=== PATIENT | female | born 1980 | race Caucasian/White ===

== ENCOUNTER 2017-06-01 05:33 | Emergency (ER) | payer MEDICARE ==
[~2017-06-01] VITALS: Ht 182.9 cm; Wt 94.2 kg
[2017-06-01] MEDS ORDERED: ONDANSETRON 2MG/ML, 2ML ONE (06:21)
[2017-06-01] MEDS ORDERED: MORPHINE SULFATE 4 MG/ML, 1ML ONE (06:21)
[2017-06-01] MEDS ORDERED: ASPIRIN 81 MG TABLET CHEW ONE (06:21)
[2017-06-01 06:22] LABS: HEMATOCRIT 43.3 % (34.6-47.8); HEMOGLOBIN 14.5 g/dL (11.7-16.4); WHITE BLOOD COUNT 7.8 x10^3/uL (3.4-10)
[2017-06-01] MEDS ORDERED: SODIUM CHLORIDE FLUSH 10ML SYR IVF ONE (06:30)
[2017-06-01] MEDS ORDERED: MORPHINE SULFATE 4 MG/ML, 1ML IVPush PRN (06:30)
[2017-06-01] MEDS ORDERED: ASPIRIN 81 MG TABLET CHEW PO ONE (06:30)
[2017-06-01] MEDS ORDERED: ONDANSETRON 2MG/ML, 2ML IVPush ONE (06:30)
[2017-06-01 06:34] LABS: BLOOD UREA NITROGEN 8 mg/dL (7-18)
[2017-06-01 06:46] LABS: IS PT STATUS REG ER OR PRE ER? YES
[2017-06-01] MEDS ORDERED: OMNIPAQUE 350 MG/ML, 100ML BOTTLE ONE (07:30)
[2017-06-01] MEDS ORDERED: KETOROLAC 30 MG/1 ML IVPush ONE (08:30)
[2017-06-01] MEDS ORDERED: METOCLOPRAMIDE 5 MG/ML, 2ML IVPush ONE (08:30)
[2017-06-01] MEDS ORDERED: DIPHENHYDRAMINE 50 MG/ML, 1ML IVPush ONE (08:30)
[2017-06-01] MEDS ORDERED: METOCLOPRAMIDE 5 MG/ML, 2ML ONE (08:39)
[2017-06-01] MEDS ORDERED: KETOROLAC 30 MG/1 ML ONE (08:39)
[2017-06-01] MEDS ORDERED: DIPHENHYDRAMINE 50 MG/ML, 1ML ONE (08:39)
[2017-06-01 09:18] VITALS: BP 125/78
== END 2017-06-01 09:20 | disposition home or self-care (01) ==
LOC: ED 06:28
DX: R07.89 Other chest pain (principal); G43.909 Migraine, unspecified, not intractable, without status migrainosus; N30.90 Cystitis, unspecified without hematuria; Z88.8 Allergy status to other drugs, medicaments and biological substances
CPT/HCPCS: 36415; 71010; 71275; 80048; 81001; 82040; 83880; 84484; 85025; 85379; 87086; 93005; 96374; 96375; 99285; J1200; J1885; J2405; J2765; Q9967

== ENCOUNTER 2018-08-03 10:10 | Emergency (ER) | payer MEDICARE, OTHER ==
[~2018-08-03] VITALS: Ht 182.9 cm; Wt 92.0 kg
[2018-08-03 11:41] LABS: BASOPHILS # (AUTO) 0.03 x10^3/uL (0-0.1); BASOPHILS % (AUTO) 0 % (0-1); EOSINOPHILS # (AUTO) 0.46 x10^3/uL (0-0.4); EOSINOPHILS % (AUTO) 4 % (1-7); LYMPHOCYTES # (AUTO) 3.06 x10^3/uL (1-3.4); LYMPHOCYTES % (AUTO) 27 % (22-44); MD NO; MEAN CORPUSCULAR HGB CONC 33.9 g/dL (32.4-35.8); MEAN CORPUSCULAR VOLUME 88.6 fL (80-100); MEAN PLATELET VOLUME 8.1 fL (7.4-10.4); MONOCYTES # (AUTO) 0.74 x10^3/uL (0.2-0.8); MONOCYTES % (AUTO) 7 % (2-9); NEUTROPHILS # (AUTO) 6.97 x10^3/uL (1.8-6.8); NEUTROPHILS % (AUTO) 62 % (42-75); PLATELET COUNT 368 x10^3/uL (130-400); RED BLOOD COUNT 4.66 x10^6/uL (3.82-5.3); RED CELL DISTRIBUTION WIDTH 13.5 % (9.6-15.2)
[2018-08-03 11:47] LABS: MICROSCOPIC INDICATED
[2018-08-03 11:50] LABS: ALBUMIN 3.2 g/dL (3.4-5.0); ANION GAP 10 mmol/L (5-15); CALCIUM 8.6 mg/dL (8.5-10.1); CHLORIDE 102 mmol/L (98-107); CREATININE 1.22 mg/dL (0.55-1.02)
[2018-08-03 11:57] LABS: CULTURE INDICATED? NO
[2018-08-03] MEDS ORDERED: INSULIN REGULAR 100 UNITS/ML, 3ML VIAL SQ-INSULIN ONE (12:30)
[2018-08-03 12:53] VITALS: BP 97/53
== END 2018-08-03 13:07 | disposition home or self-care (01) ==
LOC: ED 12:55
DX: R33.9 Retention of urine, unspecified (principal); Z88.8 Allergy status to other drugs, medicaments and biological substances; Z88.5 Allergy status to narcotic agent
CPT/HCPCS: 36415; 51702; 80048; 81001; 82040; 85025; 93005; 99285

== ENCOUNTER 2018-11-24 19:23 | Emergency (ER) | payer MEDICARE ==
[~2018-11-24] VITALS: Ht 182.9 cm; Wt 90.1 kg
[2018-11-24 20:25] LABS: BASOPHILS # (AUTO) 0.07 x10^3/uL (0-0.1); BASOPHILS % (AUTO) 1 % (0-1); EOSINOPHILS # (AUTO) 0.39 x10^3/uL (0-0.4); EOSINOPHILS % (AUTO) 3 % (1-7); LYMPHOCYTES # (AUTO) 3.43 x10^3/uL (1-3.4); LYMPHOCYTES % (AUTO) 27 % (22-44); MD NO; MEAN CORPUSCULAR HEMOGLOBIN 30.3 pg (27.0-34.8); MEAN CORPUSCULAR HGB CONC 33.6 g/dL (32.4-35.8); MEAN CORPUSCULAR VOLUME 90.1 fL (80-100); MEAN PLATELET VOLUME 8.6 fL (7.4-10.4); MONOCYTES % (AUTO) 4 % (2-9); NEUTROPHILS % (AUTO) 66 % (42-75); PLATELET COUNT 392 x10^3/uL (130-400); RED BLOOD COUNT 4.97 x10^6/uL (3.82-5.3); RED CELL DISTRIBUTION WIDTH 14.9 % (9.6-15.2)
[2018-11-24 20:35] LABS: ALBUMIN 3.7 g/dL (3.4-5.0); ANION GAP 8 mmol/L (5-15); CALCIUM 9.6 mg/dL (8.5-10.1); CHLORIDE 108 mmol/L (98-107); CREATININE 0.92 mg/dL (0.55-1.02)
--- NOTE | 2018-11-24 20:40 | NUR ---
PT TO ROOM FROM LOBBY AT THIS TIME.
--- NOTE | 2018-11-24 20:47 | NUR ---
PT. TO ED WITH C/O COLD/COUGH/CONGESTION/CHEST TIGHTNESS X 1 MONTH ALONG WITH GENERALIZED BODY ACHES AND JOINT PAINS. PT. REPORTS WENT TO URGENT CARE AND "HAD A SEZIURE THERE SO THEY SENT ME HERE." PT. HAS HX OF SAME. NADN. PT. DENIES CP AT THIS TIME. STATES "IT'S JUST TIGHT WHEN I COUGH". CONTINUOUS PULSE OX AND B/P MONITORS PLACED. PIT ORDERS NEARLY COMPLETED; JUST AWAITING CHEST X-RAY READ. AWATING PROVIDER EVAL IN ROOM. FAMILY AT FOR SUPPORT. CALL LIGHT IN REACH. ALL SAFETY MEASUERS OBSERVED.
--- NOTE | 2018-11-24 21:31 | NUR ---
ARCHIE WAYNE IN TO EVAL PT. AND DISCUSS POC.
--- NOTE | 2018-11-24 21:39 | NUR ---
ARCHIE WAYNE OUT OF ROOM; AWAITING ORDERS.
[2018-11-24] MEDS ORDERED: IBUPROFEN 800 MG TABLET PO STA (22:01)
[2018-11-24] MEDS ORDERED: DEXAMETHASONE 4 MG TABLET PO STA (22:01)
[2018-11-24] MEDS ORDERED: IBUPROFEN 800 MG TABLET ONE (22:07)
[2018-11-24] MEDS ORDERED: DEXAMETHASONE 4 MG TABLET ONE (22:07)
[2018-11-24 22:09] VITALS: BP 103/56
--- NOTE | 2018-11-24 22:14 | NUR ---
PT. MEDICATED PER MAR. AWAITING D/C PAPERS.
== END 2018-11-24 22:27 | disposition home or self-care (01) ==
LOC: ED 22:21
DX: J20.8 Acute bronchitis due to other specified organisms (principal); J02.8 Acute pharyngitis due to other specified organisms; F17.210 Nicotine dependence, cigarettes, uncomplicated
CPT/HCPCS: 36415; 71046; 80048; 82040; 85025; 93005; 99284

== ENCOUNTER 2019-02-19 13:52 | Emergency (ER) | payer MEDICARE ==
[~2019-02-19] VITALS: Ht 182.9 cm; Wt 86.0 kg
--- NOTE | 2019-02-19 14:46 | NUR ---
PT STATES SHE HAS BEEN FEELING FUZZY MINDED FOR 3 DAYS. PER PT HAND TREMORS WORSE THAN NORMAL SINCE YESTERDAY. PT STATES SHE DID NOT TAKE PRN PAIN MEDS AND MUSCLE RELAXERS SINCE STARTING TO FEEL FUZZY MINDED. MOTHER AT BEDSIDE. AWAITING MD SMITH
--- NOTE | 2019-02-19 15:26 | NUR ---
BREAK RN: PT TO X RAY VIA EDGAR
[2019-02-19 15:34] LABS: BASOPHILS # (AUTO) 0.03 x10^3/uL (0-0.1); BASOPHILS % (AUTO) 0 % (0-1); EOSINOPHILS # (AUTO) 0.11 x10^3/uL (0-0.4); EOSINOPHILS % (AUTO) 1 % (1-7); LYMPHOCYTES # (AUTO) 2.22 x10^3/uL (1-3.4); LYMPHOCYTES % (AUTO) 21 % (22-44); MD NO; MEAN CORPUSCULAR HEMOGLOBIN 30.6 pg (27.0-34.8); MEAN CORPUSCULAR HGB CONC 33.6 g/dL (32.4-35.8); MEAN CORPUSCULAR VOLUME 91.1 fL (80-100); MEAN PLATELET VOLUME 8.4 fL (7.4-10.4); MONOCYTES # (AUTO) 0.57 x10^3/uL (0.2-0.8); MONOCYTES % (AUTO) 5 % (2-9); NEUTROPHILS # (AUTO) 7.83 x10^3/uL (1.8-6.8); NEUTROPHILS % (AUTO) 73 % (42-75); PLATELET COUNT 363 x10^3/uL (130-400); RED BLOOD COUNT 4.86 x10^6/uL (3.82-5.3); RED CELL DISTRIBUTION WIDTH 13.9 % (9.6-15.2)
--- NOTE | 2019-02-19 15:39 | NUR ---
BREAK RN: MEDICATED PER ORDERED, GAIT SLOW AND STEADY, OBTAINED URINE, SENT TO LAB
[2019-02-19 15:47] LABS: ALBUMIN 4.1 g/dL (3.4-5.0); ANION GAP 10 mmol/L (5-15); CALCIUM 9.4 mg/dL (8.5-10.1); CHLORIDE 106 mmol/L (98-107)
[2019-02-19 15:51] LABS: ALANINE AMINOTRANSFERASE 20 U/L (12-78); ALKALINE PHOSPHATASE 80 U/L (45-117); BILIRUBIN,TOTAL 0.7 mg/dL (0.2-1.0); CREATININE 0.74 mg/dL (0.55-1.02); TOTAL PROTEIN 8.2 g/dL (6.4-8.2)
[2019-02-19 16:06] LABS: AMPHETAMINE SCREEN, URINE Negative (Negative); BARBITURATE SCREEN, URINE Negative (Negative); BENZODIAZEPINE SCREEN, URINE Negative (Negative); CANNABINOID SCREEN, URINE Negative (Negative); COCAINE SCREEN, URINE Negative (Negative); METHADONE SCREEN, URINE Negative (Negative); OPIATE SCREEN, URINE Negative (Negative)
[2019-02-19 16:44] VITALS: BP 148/101
== END 2019-02-19 16:46 | disposition home or self-care (01) ==
LOC: ED 14:47
DX: R06.00 Dyspnea, unspecified (principal); I10 Essential (primary) hypertension; R20.2 Paresthesia of skin; R11.0 Nausea
CPT/HCPCS: 36415; 70450; 80053; 80307; 85025; 93005; 99284; Q0177

== ENCOUNTER 2019-02-25 18:47 | Emergency (ER) | payer MEDICARE ==
[~2019-02-25] VITALS: Ht 182.9 cm; Wt 92.4 kg
--- NOTE | 2019-02-25 18:56 | NUR ---
HERE WITH MOTHER AND FATHER, SYMPTOMS TIMES ONE WEEK OF FACIAL NUMBNESS AND CHEST PAIN, STATES THAT ONE HOUR AGO SHE DEVELOPED WHOLE L SIDE NUMBNESS, FACE SYMMETRICAL, MORA, WEAKNESS THROUGHOUT. AMBULATORY WITH STEADY GAIT HOWEVER MOVING QUIET SLOWLY.
[2019-02-25] MEDS ORDERED: SODIUM CHLORIDE FLUSH 10ML SYR IVF ONE (19:30)
[2019-02-25 19:38] LABS: BASOPHILS # (AUTO) 0.06 x10^3/uL (0-0.1); BASOPHILS % (AUTO) 1 % (0-1); EOSINOPHILS # (AUTO) 0.35 x10^3/uL (0-0.4); EOSINOPHILS % (AUTO) 4 % (1-7); LYMPHOCYTES # (AUTO) 4.16 x10^3/uL (1-3.4); LYMPHOCYTES % (AUTO) 41 % (22-44); MD NO; MEAN CORPUSCULAR HEMOGLOBIN 31.2 pg (27.0-34.8); MEAN CORPUSCULAR HGB CONC 34.2 g/dL (32.4-35.8); MEAN PLATELET VOLUME 8.3 fL (7.4-10.4); MONOCYTES # (AUTO) 0.43 x10^3/uL (0.2-0.8); MONOCYTES % (AUTO) 4 % (2-9); NEUTROPHILS # (AUTO) 5.07 x10^3/uL (1.8-6.8); NEUTROPHILS % (AUTO) 50 % (42-75); PLATELET COUNT 362 x10^3/uL (130-400); RED BLOOD COUNT 4.48 x10^6/uL (3.82-5.3)
[2019-02-25 19:42] LABS: ALANINE AMINOTRANSFERASE 18 U/L (12-78); ALBUMIN 3.6 g/dL (3.4-5.0); ANION GAP 5 mmol/L (5-15); CALCIUM 8.6 mg/dL (8.5-10.1); CHLORIDE 113 mmol/L (98-107); CREATININE 0.84 mg/dL (0.55-1.02)
[2019-02-25 19:44] LABS: ALKALINE PHOSPHATASE 78 U/L (45-117); BILIRUBIN,TOTAL 0.1 mg/dL (0.2-1.0); TOTAL PROTEIN 7.5 g/dL (6.4-8.2)
--- NOTE | 2019-02-25 21:09 | NUR ---
PT JUST BACK TO ROOM
[2019-02-25] MEDS ORDERED: OXYC-302 PO (22:15)
[2019-02-25] MEDS ORDERED: PROP60TA PO (22:15)
[2019-02-25] MEDS ORDERED: ONDA4TAB7 PO (22:15)
[2019-02-25] MEDS ORDERED: BUPR2TAB PO (22:15)
[2019-02-25] MEDS ORDERED: LEVO25TA4 PO (22:15)
[2019-02-25] MEDS ORDERED: ZOLM2.5T7 PO (22:15)
[2019-02-25] MEDS ORDERED: TIZA4CAP PO (22:15)
[2019-02-25] MEDS ORDERED: ZONI100C36 PO (22:15)
[2019-02-25] MEDS ORDERED: CHOL100011 PO (22:15)
[2019-02-25] MEDS ORDERED: SUVO20TA PO (22:15)
[2019-02-25] MEDS ORDERED: TRAZ-137 PO (22:15)
--- NOTE | 2019-02-25 22:23 | NUR ---
MRI SCREENING FORM SENT TO MRI. PT ON CARDIAC AND VITALS MONITORS. PT IN HOSPITAL GOWN. PT GIVEN WARM BLANKETS. PT MOM AT BEDSIDE.
[2019-02-25 23:21] LABS: TROPONIN I < 0.015 ng/mL (0.000-0.045)
--- NOTE | 2019-02-25 23:25 | NUR ---
UNABLE TO REACH MRI. ATTEMPTING TO FIND OUT WHEN PT WILL GO TO MRI. CALLED HOUSE SUP TO MAKE SURE TECH HAS BEEN CALLED IN. ABLE TO SPEAK WITH CT WHO STATED THERE ARE 2 CASES BEFORE PT. WILL CONTINUE TO MONITOR.
--- NOTE | 2019-02-26 00:35 | NUR ---
PT GOING TO MRI AT THIS TIME. PT FMAILY MEMBER BROUGHT IN DEVICE TO MAKE IMPLANTED PUMP SAFE FOR MRI.
--- NOTE | 2019-02-26 01:01 | NUR ---
BREAK RN: PT BACK FROM MRI. PT VISTIING WITH FAMILY AT BEDSIDE. VS STABLE. CALL LIGHT IN PLACE. WILL CONTINUE TO MONITOR WHLE PRIMARY RN IS ON BREAK
--- NOTE | 2019-02-26 01:20 | NUR ---
REPORT GIVEN TO MARGUERITE GRAY
[2019-02-26 02:47] VITALS: BP 110/60
== END 2019-02-26 02:48 | disposition home or self-care (01) ==
LOC: ED 21:27
DX: R07.89 Other chest pain (principal); R20.2 Paresthesia of skin; I10 Essential (primary) hypertension; G89.29 Other chronic pain; R10.9 Unspecified abdominal pain
CPT/HCPCS: 36415; 70551; 80053; 84484; 85025; 93005; 99284

== ENCOUNTER → 2019-04-11 | Outpatient (CLI) | payer MEDICARE ==
[~2019-04-11] MED LIST: BUPR2TAB PO; CHOL100011 PO; LEVO25TA4 PO; ONDA4TAB7 PO; OXYC-302 PO; PROP60TA PO; REGADENOSON 0.4 MG/5 ML SYRINGE ONE; SUVO20TA PO; TIZA4CAP PO; TRAZ-137 PO; ZOLM2.5T7 PO; ZONI100C36 PO
== END | disposition home or self-care (01) ==
LOC: CVU 06:40
PROVIDERS: ATTEND Internal Medicine Cardiovascular Disease
DX: R07.89 Other chest pain (principal); I10 Essential (primary) hypertension
CPT/HCPCS: 78452; 93017; 93306; A9502; J2785

== ENCOUNTER 2020-05-21 11:55 | Outpatient (CLI) | payer MEDICARE ==
[~2020-05-21 11:55] MED LIST changes: -REGADENOSON 0.4 MG/5 ML SYRINGE ONE; -TRAZ-137 PO; +TRAZ-175 PO; +ZOLM2.5T31 PO; -ZOLM2.5T7 PO
[2020-05-21] MEDS ORDERED: GADOTERATE 10 MMOL/20 ML SYR ONE (13:07)
== END 2020-05-21 23:59 | disposition home or self-care (01) ==
LOC: RAD 11:55
PROVIDERS: ATTEND Psychiatry & Neurology Neurology
DX: R41.3 Other amnesia (principal); J34.1 Cyst and mucocele of nose and nasal sinus
CPT/HCPCS: 70553; A9575